=== PATIENT | female | born 1960 | race Asian ===

== ENCOUNTER 2024-05-24 21:46 | Emergency (ER) | payer OTHER ==
[~2024-05-24] VITALS: Ht 154.9 cm; Wt 59.1 kg
[~2024-05-24 21:46] MED LIST: ASPI-1450 PO; INSLAN SQ; ISOS30TA68 PO; LISI20TA24 PO; METF-1211 PO; METO50 PO; PRAV40TA4 PO
[2024-05-24 21:50] VITALS: TEMP 98.2
[2024-05-24] MEDS ORDERED: 0.9% SODIUM CHLORIDE 10 ML SYRINGE IVP PRN (22:15)
[2024-05-24] MEDS: PIPERACILLIN/TAZO 3.375 GM/D5W 50 ML IV ONE (22:32)
[2024-05-24] MEDS: LABETALOL HCL 5 MG/ML 20 ML VIAL IVP ONE ×2 (22:32→23:15)
[2024-05-24] MEDS: VANCOMYCIN 1GM/WATER(PEG/NADA) 200 ML IV ONE (22:44)
[2024-05-24 22:45] LABS: BASOPHILS % (AUTO) 0.7 % (0.0-2.0); LYMPHOCYTES # (AUTO) 3.1 K/uL (1.0-4.8); MONOCYTES # (AUTO) 1.1 K/uL (0.1-1.0)
[2024-05-24 22:52] LABS: PROTHROMBIN TIME 9.8 SEC (9.4-11.6)
[2024-05-24 22:54] LABS: EOSINOPHILS % (AUTO) 1.3 % (1.0-6.0); HEMATOCRIT 33.5 % (36-46); HEMOGLOBIN 10.1 g/dL (12.0-16.0); LYMPHOCYTES % (AUTO) 22.1 % (22.0-44.0); MEAN CORPUSCULAR HEMOGLOBIN 20.2 pg (26.0-34.0); MEAN CORPUSCULAR HGB CONC 30.1 G/dL (31.0-37.0); MEAN CORPUSCULAR VOLUME 67 fL (80-100); MONOCYTES % (AUTO) 7.9 % (2.0-9.0); NEUTROPHILS # (AUTO) 9.7 K/uL (1.8-7.7); PLATELET COUNT (AUTO) 338 K/uL (150-450); RED BLOOD CELL COUNT(AUTO) 4.98 MIL/uL (4.00-5.20); RED CELL DISTRIBUTION WIDTH 14.2 % (11.5-14.5); WHITE BLOOD COUNT (AUTO) 14.2 K/uL (4.5-11.0)
[2024-05-24 22:56] LABS: B-TYPE NATRIURETIC PEPTIDE 308 pg/mL (0-100)
[2024-05-24] MEDS: INSULIN REGULAR, HUMAN 100 UNITS/ML IVP ONE (22:56)
[2024-05-24 22:58] LABS: TROPONIN I-HIGH SENSITIVITY 28 ng/L (<51)
[2024-05-24 23:03] LABS: LACTIC ACID 2.4 mmol/L (0.4-2.0)
[2024-05-24] MEDS: SODIUM CHLORIDE 0.9% 1,750 ML IV ONE (23:08)
[2024-05-24 23:15] LABS: ALANINE AMINOTRANSFERASE 21 U/L (12-78); ALBUMIN 2.5 g/dL (3.4-5.0); ALKALINE PHOSPHATASE 159 U/L (46-116); ANION GAP 11 mmol/L (8-16); ASPARTATE AMINOTRANSFERASE 21 U/L (15-37); BILIRUBIN,TOTAL 0.3 mg/dL (0.1-1.0); CALCIUM, TOTAL 8.6 mg/dL (8.8-10.5); CARBON DIOXIDE 27 mmol/L (22-29); CHLORIDE 91 mmol/L (98-107); CREATINE KINASE, TOTAL ONLY 79 U/L (26-192); CREATININE 1.78 mg/dL (0.60-1.30); GLOMERULAR FILTR. RATE CALC 29 mL/min (>60); POTASSIUM 4.3 mmol/L (3.5-5.1); SODIUM SERUM 129 mmol/L (136-145); TOTAL PROTEIN, SERUM 9.3 g/dL (6.4-8.2); UREA NITROGEN, BLOOD 30 mg/dL (7-18)
[2024-05-24 23:17] LABS: GLUCOSE,RANDOM 518 mg/dL (70-110)
[2024-05-24 23:34] LABS: RBC MORPHOLOGY COMMENT ABNORMAL RBC MORPH
[2024-05-25 01:01] LABS: GLUCOMETER DEV NAME(LOC) ER.7; GLUCOSE,POINT OF CARE 364 MG/DL (70-110)
[2024-05-25 01:12] LABS: APPEARANCE,URINE CLEAR (CLEAR); BILIRUBIN,URINE NEGATIVE (NEGATIVE); COLOR,URINE COLORLESS (YELLOW); GLUCOSE, URINE (UA) >=1000 mg/dL (NEGATIVE); KETONES,URINE NEGATIVE (NEGATIVE); LEUKOCYTE ESTERASE ,URINE NEGATIVE (NEGATIVE); NITRATE,URINE NEGATIVE (NEGATIVE); OCCULT BLOOD,URINE SMALL (NEGATIVE); PH,URINE 6.5 (5.0-8.0); PROTEIN,URINE 100-200,SEE CONFIRM mg/dL (NEGATIVE); SPECIFIC GRAVITIY, URINE 1.022 (1.003-1.030); UROBILINOGEN,URINE <=1.0 mg/dL (<=1.0)
[2024-05-25 01:25] LABS: BACTERIA,URINE None Seen /HPF (None Seen); RBC,URINE 0-2 /HPF (0-2); SQUAMOUS EPITHELIAL CELL,UR Rare /LPF (None Seen); SULFOSALICYLIC ACID,URINE 1+ (Negative); WBC,URINE 0-2 /HPF (0-5)
[2024-05-25] MEDS: LABETALOL HCL 5 MG/ML 20 ML VIAL IVP ONE (02:25)
[2024-05-25] MEDS: HYDROmorphone HCL 2 MG/ML SYRINGE IVP ONE (03:44)
[2024-05-25] MEDS: ONDANSETRON HCL 4 MG/2 ML VIAL IVP ONE (03:44)
[2024-05-25 05:18] VITALS: BP 135/57; PULSE 83; RESP 14; O2SAT 96
[2024-05-26 04:46] LABS: GLUCOMETER DEV NAME(LOC) ER.7; GLUCOSE,POINT OF CARE 234 MG/DL (70-110)
== END 2024-05-25 05:26 | disposition short-term general hospital (02) ==
LOC: EMS 21:46
DX: I70.262 Atherosclerosis of native arteries of extremities with gangrene, left leg (principal); L03.116 Cellulitis of left lower limb; E11.52 Type 2 diabetes mellitus with diabetic peripheral angiopathy with gangrene; I10 Essential (primary) hypertension; Z79.4 Long term (current) use of insulin; Z79.82 Long term (current) use of aspirin; Z79.84 Long term (current) use of oral hypoglycemic drugs; Z90.49 Acquired absence of other specified parts of digestive tract; Z79.899 Other long term (current) drug therapy
CPT/HCPCS: 99291; 96365; 73700; 96375 ×2; 96366; 80048; 80076; 81001; 82550; 82962 ×2; 83605; 83880; 84484; 85025; 85610; 85730; 87040; 36415; 71045; 99292; 93005; 96376 ×2; 96368; 84145; J1815; J3490 ×2; J2543; J7030; J1171; J2405; 81002